=== PATIENT | female | born 1930 | race Caucasian/White ===

== ENCOUNTER 2017-01-13 11:37 | Inpatient (IN) | payer OTHER ==
[2017-01-13 15:27] LABS: MANUAL DIFF NEEDED? NO
[2017-01-13 15:28] LABS: BASO% 0.3 % (0.0-0.8); EOS# 0.05 X1000 (0.0-0.7); EOS% 0.7 % (0.0-10.0); HEMATOCRIT 37.3 % (37.0-47.0); HEMOGLOBIN 12.3 g/dL (12.0-16.0); IMM GRAN# 0.02 X1000 (0.0-0.04); IMM GRAN% 0.3 % (0.0-0.5); LYMPH# 3.13 X1000 (1.2-3.4); LYMPH% 41.6 % (20.5-51.1); MCH 28.5 PG (27-31); MCV 86.3 FL (81-99); MONO# 0.69 X1000 (0.11-0.59); MONO% 9.2 % (1.7-9.3); MPV 10.2 FL (7.4-10.4); NEUT% 47.9 % (42.2-75.2); PLT 278 X1000 (130-400); RBC 4.32 XMIL (4.2-5.4)
--- NOTE | 2017-01-13 15:44 | ED EKG INTERP ---
EKG Interpretation - EKG Time of EKG reading by physician:: 15:00 EKG Read and Signed by:: Semaj Nowak EKG Interpretation (*Must complete 3 of following elements*): Abnormal (Left Bundal branch block) Rate: 75 Rhythm: Normal sinus rhythm Comments: Abnormal ECG
[2017-01-13 15:54] LABS: ALBUMIN 4.1 g/dL (3.5-5.0); CALCIUM 9.3 mg/dL (8.8-10.2); TOTAL BILIRUBIN 0.4 mg/dL (0.20-1.00); TOTAL PROTEIN 6.7 g/dL (6.3-8.3)
--- NOTE | 2017-01-13 15:58 | EKG Report ---
Test Performed on : 01/13/2017 3:00:41 PM Test Reason : AMS Blood Pressure : / mmHG Vent. Rate : 075 BPM Atrial Rate : 075 BPM P-R Int : 166 ms QRS Dur : 152 ms QT Int : 466 ms P-R-T Axes : 008 -17 135 degrees QTc Int : 520 ms Normal sinus rhythm. Left bundle branch block Abnormal ECG When compared with ECG of 24-OCT-2016 16:00, Left bundle branch block is now present Unconfirmed Result
[2017-01-13 16:00] LABS: INR 1.07 (0.86-1.15); PROTIME 14.2 Seconds (12.1-15.5); PTT PL 24.9 Seconds (22.6-43.9)
--- NOTE | 2017-01-13 16:22 | Diag Imaging Result Document ---
PROCEDURE NAME: HEAD/C-SPINE W/O CONTRAST - 01/13/[address]: A CT dose reduction protocol was used. COMPARISON: 10/24/2016. FINDINGS: There is a new ill-defined hypodense area of the left parietal lobe. No intracranial mass or hemorrhage. Stable diffuse atrophy. The skull is intact. The sinuses are clear. 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 At least 1 -day- old. CT CERVICAL SPINE: A CT dose reduction protocol was used. COMPARISON: None. FINDINGS: Alignment is anatomic. No fracture or subluxation. There is mild multilevel disk degeneration notably at C5-6 and C6-C7. There is significant bilateral facet degeneration left greater than right. IMPRESSION: Cervical spondylosis. No acute disease. [facility]
--- NOTE | 2017-01-13 16:34 | PROVIDER DOCUMENTATION ---
HPI-General Adult - General Chief Complaint: Altered Mental Status Stated Complaint: AMS/FALL/URINARY RETENTION Time Seen by Provider: 01/13/17 15:15 Source: patient Allergies/Adverse Reactions: Patient Allergies Allergy/AdvReac Type Severity Reaction Status Date / Time levofloxacin [From Levaquin] Allergy ANAPHYLAXIS Verified 07/14/16 15:50 Home Medications: Home Medication List Medication Instructions Recorded Confirmed Last Taken Type Potassium Chloride E.r. [Klor-Con] 10 meq PO TID 06/18/14 01/09/16 Unknown History Ergocalciferol (Vitamin D2) 50,000 unit PO Q7D #5 capsule 05/21/15 01/09/16 Unknown Rx [Vitamin D] Fenofibrate [Tricor] 145 mg PO QHS #0 tablet 05/21/15 01/09/16 Unknown Rx Omeprazole [Prilosec] 40 mg PO DAILY@0700 #30 capsule 05/21/15 01/09/16 Unknown Rx Trazodone [Desyrel] 25 mg PO QHS PRN #30 tablet 05/21/15 01/09/16 Unknown Rx Diltiazem [Cardizem] 30 mg PO DAILY 08/10/15 01/09/16 Unknown History Lisinopril 20 mg PO DAILY 08/10/15 01/09/16 Unknown History Metoprolol Succinate E.r. [Toprol 100 mg PO DAILY 08/10/15 01/09/16 Unknown History Xl] Losartan Potassium [Cozaar] 100 mg PO BID 01/09/16 01/09/16 Unknown History Hydrocodone/APAP 5 mg/325 mg 1 each PO Q6H PRN PRN #15 tablet 07/14/16 Unknown Rx [[place]-5] - History of Present Illness -Gen Adult Nature of Presenting Problems: 86 yo female presents to ER with family. Patient c/o not having a BM in 5 days. Daughters states that she has been more emotional and confused in the past several days. She had open heart surgery at in October and was in hospital for 3 weeks then went to rehab facility for 21 days but has not been participating in rehab and has been refusing medication so family brought her home two weeks ago. The first week she did really well but the past several days she has been worse with emotions and confusion. They also state that when she gets upset that she starts to hyperventilate. Location of Pain/Injury: reports: abdomen Pain Radiation: reports: no radiation Quality of Pain: reports: pressure Severity: reports: mild Onset/Duration: reports: 5 days ago Timing: reports: still present Context/Activities at Onset: reports: none Modifying Factors: improves with: nothing Associated Symptoms: reports: constipation Similar Symptoms Previously?: No Recently seen or treated by another doctor?: No Review of Systems - Adult - REVIEW OF SYSTEMS - ADULT Constitutional: reports: no symptoms reported Eyes: reports: no symptoms reported Ears, Nose, Mouth & Throat: reports: no symptoms reported Cardiovascular: reports: no symptoms reported Respiratory: reports: no symptoms reported Gastrointestinal: reports: see HPI, constipation Genitourinary: reports: no symptoms reported Musculoskeletal: reports: no symptoms reported Integumentary: reports: no symptoms reported Neurological: reports: no symptoms reported Psychiatric: reports: see HPI, panic attacks Endocrine: reports: no symptoms reported Hematologic/Lymphatic: reports: no symptoms reported Allergic/Immunologic: reports: no symptoms reported All Other Systems: Reviewed and Negative Past History - Adult - PAST MEDICAL HISTORY-ADULT Review of Records: reports: Old Records Reviewed, Nursing Assessment Review, Medications Reviewed, Social history reviewed & non-contributory. Major Childhood Illnesses: reports: denies history Cardiovascular: reports: cardiac disease, CAD, HTN, hyperlipidemia, other (Had cardic cath 8 weeks ago and it was negative) Respiratory: reports: bronchitis (chronic), COPD Gastrointestinal: reports: denies history Neurological: reports: headaches/migraines, other (Trigeminal Neurlgia) Endocrine/Immune: reports: thyroid disorder - PRIOR SURGERIES/PROCEDURES Surgical/Procedure History: reports: CABG (October 2016), hysterectomy, other ( tumor removal) - IMMUNIZATION STATUS Childhood Immunizations: See Nurse Assessment Flu Vaccine: See Nurse Assessment - FAMILY HISTORY Family History: reviewed, not pertinent - SOCIAL HISTORY Smoking: denies, non-smoker Substance Use: denies Alcohol Use Frequency: never Living Situation: family Physical Exam-General - PHYSICAL EXAM-ADULT Initial Vital Signs Reviewed: Yes - CONSTITUTIONAL General Appearance: appears well, mild distress (anxious), other (confused at times) - EYES Eyes: PERRL/EOMI - HEAD, EARS, NOSE, MOUTH & THROAT HENMT: normocephalic/atraumatic, moist mucous membranes, normal ENT inspection - NECK Neck: non-tender, full range of motion, supple - RESPIRATORY Respiratory: lungs clear, normal breath sounds, no respiratory distress, other ( hyperventalates at times) - CARDIOVASCULAR Cardiovascular: normal peripheral pulses, regular rate, rhythm - GASTROINTESTINAL (ABDOMEN) Abdominal Exam: soft, abnormal bowel sounds (hypoactive) - MUSCULOSKELETAL Back Exam: normal inspection Extremity: normal inspection, no pedal edema Peripheral Pulses: radial (R): 2+, radial (L): 2+, dorsalis-pedis (R): 2+, dorsalis-pedis (L): 2+ - SKIN Integumentary: normal color, normal turgor, warm/dry - NEUROLOGIC Neurologic: grossly normal - PSYCHIATRIC Psych/Mental Status: disoriented x 3 (knows place and person but not time), anxious, depressed affect, tearful Progress - PLAN OF CARE/RESULTS Progress/Plan/Lab Results: 1615-Discussed CT results with Dr. Nowak; he instructs to admit to hospitalist. 163-Discussed results/dx/need for admission with patient and family; they verbalized understanding. 165-Dr. Venegas is in ER seeing patient. Laboratory Tests 01/13/17 01/13/17 01/13/17 15:15 15:15 15:15 WBC RBC Hgb Hct MCV MCH MCHC RDW Std Deviation Plt Count MPV Immature Gran % (Auto) Neut % (Auto) Lymph % (Auto) [place] % (Auto) Eos % (Auto) Baso % (Auto) Immature Gran # (Auto) Neut # (Auto) Lymph # (Auto) [place] # (Auto) Eos # (Auto) Baso # (Auto) PT INR APTT (Factor Assay) Sodium 134 L Potassium 4.0 Chloride 98 Carbon Dioxide 21 L Anion Gap 16 BUN 21 Creatinine 1.4 H Estimated GFR/1.73 m2 36 BUN/Creatinine Ratio 15 Glucose 124 H Calculated Osmolality 273 Calcium 9.3 Total Bilirubin 0.40 AST 66 H ALT 39 H Alkaline Phosphatase 42 Creatine Kinase 86 Troponin T 0.010 Total Protein 6.7 Albumin 4.1 Globulin 3.0 Albumin/Globulin Ratio 2.0 Plasma Lactate 2.3 H Plasma/Serum Ethyl Alc 01/13/17 01/13/17 01/13/17 15:15 15:15 15:15 WBC 7.52 RBC 4.32 Hgb 12.3 Hct 37.3 MCV 86.3 MCH 28.5 MCHC 33.0 RDW Std Deviation 16.7 H Plt Count 278 MPV 10.2 Immature Gran % (Auto) 0.3 Neut % (Auto) 47.9 Lymph % (Auto) 41.6 [place] % (Auto) 9.2 Eos % (Auto) 0.7 Baso % (Auto) 0.3 Immature Gran # (Auto) 0.02 Neut # (Auto) 3.61 Lymph # (Auto) 3.13 [place] # (Auto) 0.69 H Eos # (Auto) 0.05 Baso # (Auto) 0.02 PT 14.2 INR 1.07 APTT (Factor Assay) 24.9 Sodium Potassium Chloride Carbon Dioxide Anion Gap BUN Creatinine Estimated GFR/1.73 m2 BUN/Creatinine Ratio Glucose Calculated Osmolality Calcium Total Bilirubin AST ALT Alkaline Phosphatase Creatine Kinase Troponin T Total Protein Albumin Globulin Albumin/Globulin Ratio Plasma Lactate Plasma/Serum Ethyl Alc Orders Category Date Time Status Cardiac Monitoring DIRECTED Care 01/13/17 14:52 Active Finger Stick Blood Sugar (ED) DIRECTED Care 01/13/17 14:52 Active Saline Loc NOW Care 01/13/17 14:52 Active CHEST-2 VIEWS [RAD] Stat Exams 01/13/17 14:54 Taken HEAD/C-SPINE W/O CONTRAST [CT] Stat Exams 01/13/17 15:33 Draft flat [ABDOMEN FLAT/UPRIGHT] [RAD] Stat Exams 01/13/17 15:11 Taken ALCOHOL BLOOD Stat Lab 01/13/17 15:15 Completed CBC WITH ELECTRONIC DIFF [HEME] Stat Lab 01/13/17 15:15 Completed CK PROFILE [SP CHEM] Stat Lab 01/13/17 15:15 Completed COMPREHENSIVE METABOLIC PANEL [CHEM] Stat Lab 01/13/17 15:15 Completed LACTATE, PLASMA [CHEM] Stat Lab 01/13/17 15:[address]IME WITH INR [address] [COAG] Stat Lab 01/13/17 15:[address] [COAG] Stat Lab 01/13/17 15:15 Completed TROPONIN T Stat Lab 01/13/17 15:[address] W/POSS RFLX CULT [URINALYSIS] Stat Lab 01/13/17 15:06 Or[address] DRUG SCREEN [address] Stat Lab 01/13/17 15:06 Ordered Pulse Oximetry Stat Oth 01/13/17 14:52 Active EKG [EKG] Stat Ther 01/13/17 14:52 Draft Vital Signs - 24 hr 01/13/17 11:45 Temperature 97.5 F L Pulse Rate 76 Respiratory 20 Rate Blood Pressure 139/075 O2 Sat by Pulse 100 Oximetry - XRAY 1 XRAY Study: Chest Impression: Normal (NAD) XRAY Interpretation: Interpreted by Dr. Morton 2 XRAY Study: Abdomen Impression: Abnormal (severe rectal stool impaction borderline gas distention small bowel loop uncertain significance) XRAY Interpretation: Interpreted by Dr. Morton - CT/MRI 1 CT Study: Cervical Spine, Head Impression: Abnormal (recent stroke left parietal lobe 1-2 days old c-spine: DDD; NAD) CT Results: Interpreted by Dr. Morton - CONSULTS/PCP/HOSPITALIST Notification #1 *Consult/PCP/Hospitalist*: Dr. Venegas Time Discussed: 16:20 (hospitalist) Consult Disposition: Admit Departure - Departure Time of Disposition Order: 16:41 DIAGNOSIS: Fecal impaction in rectum, Stroke, acute, within 8 weeks, Confused but orients easily Disposition: ADMITTED INPATIENT 09 Certified Medical Emergency: Emergent Condition: Fair Referrals: Margarito Powell MD [Primary Care Provider] - Attestation - Physician/ JOSEE Attestation Patient care was provided by Advanced Practice Provider:: Yes Advanced Practice Provider:: Katelyn Browning Advanced Practice Provider documentation review:: The Mid-level provider documentation, treatment plan and medical decision making was reviewed by the physician who agrees with all treatment and medical decision making by the [facility].
--- NOTE | 2017-01-13 16:47 | Diag Imaging Result Document ---
PROCEDURE NAME: CHEST-2 VIEWS - 01/13/2017 CHEST, 2 VIEWS: COMPARISON: 10/24/2016. FINDINGS: There are new CABG changes. Heart size and pulmonary vascularity is normal. No focal infiltrates, pneumothorax, or pleural effusion. IMPRESSION: No acute disease.
--- NOTE | 2017-01-13 16:49 | Diag Imaging Result Document ---
PROCEDURE NAME: ABDOMEN FLAT/UPRIGHT - 01/13/2017 ABDOMEN, 2 VIEWS: COMPARISON: 07/14/2016. FINDINGS: There is a borderline gas distended loop of small bowel in the right lower quadrant measuring 3.4 cm. There is a large rectal stool ball measuring 15 x 9 cm. No free air. IMPRESSION: 1. Severe rectal stool impaction. 2. Borderline gas distended small bowel loop. Significance uncertain.
[2017-01-13] MEDS ORDERED: NS 1,000 ML IV SCH (17:49)
--- NOTE | 2017-01-13 23:21 | Diag Imaging Result Document ---
PROCEDURE NAME: FEMUR MIN 2 VIEWS RIGHT - 01/13/2017 PLAIN RADIOGRAPH OF THE RIGHT FEMUR 5 VIEWS: COMPARISON: None available. FINDINGS: There are mild degenerative changes at the right acetabular roof. There is no discrete fracture, dislocation, or intrinsic osseous lesion involving the right femur. Surrounding soft tissues are grossly unremarkable by plain radiograph. IMPRESSION: No definite acute osseous abnormality by plain radiograph.
[2017-01-14 06:09] LABS: HEMATOCRIT 32.8 % (37.0-47.0); HEMOGLOBIN 10.5 g/dL (12.0-16.0); MCH 27.9 PG (27-31); MCV 87.2 FL (81-99); MPV 10.6 FL (7.4-10.4); RBC 3.76 XMIL (4.2-5.4)
[2017-01-14 06:36] LABS: ALBUMIN 3.3 g/dL (3.5-5.0); CALCIUM 8.3 mg/dL (8.8-10.2); POTASSIUM 3.3 mmol/L (3.5-5.1); TOTAL BILIRUBIN 0.3 mg/dL (0.20-1.00); TOTAL PROTEIN 5.4 g/dL (6.3-8.3)
[2017-01-14] MEDS ORDERED: DULCOLAX PR ONE (07:40)
[2017-01-14] MEDS: COREG PO SCH ×2 (08:31→21:45)
[2017-01-14] MEDS: KLOR-CON PO SCH ×2 (08:31→21:45)
[2017-01-14] MEDS: ASPIRIN EC PO SCH (08:31)
[2017-01-14] MEDS: MULTI-VITAMIN PO SCH (08:32)
[2017-01-14] MEDS: LASIX PO SCH (08:32)
[2017-01-14] MEDS: COLACE PO SCH (08:32)
--- NOTE | 2017-01-14 11:33 | PROGRESS NOTE ---
DATE: 01/14/2017 SUBJECTIVE: Patient is resting quietly in bed. Daughter at bedside states that she had a large bowel movement this a.m. OBJECTIVE: Vital Signs: Temperature 97.9 degrees, pulse 63, respirations 18, blood pressure 152/67, saturating 100% on room air. General: This is an 86-year-old female who is lying in the bed. Answers most questions appropriately. HEENT: Normocephalic and atraumatic. Pupils are equal, round, and reactive to light. Extraocular movements are intact. The oropharynx and nares are clear. Neck: Supple. Lungs: Clear to auscultation bilaterally, with equal lung expansion and chest wall movement. Heart: Regular rate and rhythm. No murmurs, rubs, or gallops. Abdomen: Soft, nontender, and mildly distended, with some hypoactive bowel sounds this a.m., but did have a positive bowel movement this morning. Extremities: There is no clubbing, cyanosis, or edema. Neurological: The cranial nerves 2-12 appear grossly intact. LABORATORY DATA: This morning, white blood cell count of 5.38, hemoglobin 10.5, hematocrit 32.8, platelets of 227,000. Sodium is 138, potassium is 3.3, chloride 105, CO2 is 22, BUN 16, creatinine 1.1, glucose 91. AST is 45, ALT 29. Her triglycerides were 177, cholesterol 156. ASSESSMENT: 1. Acute cerebrovascular accident. 2. Fecal impaction. 3. Acute kidney injury. 4. History of hypertension. 5. Hypokalemia. PLAN: We will again obtain her echo and carotid this a.m., continue her telemetry, neurologic checks q.4 for 24 hours. Physical therapy to evaluate and speech. We restarted her home medications, which included her potassium. She is on 10 mEq p.o. b.i.d. Will give that today. Reassess her CBC and CMP in the a.m. She has had a positive bowel movement. Will obtain another abdomen x-ray to ensure that the fecal impaction has resolved. Dictated by GAMA Valdes for Rylan Venegas MD
--- NOTE | 2017-01-14 12:22 | Diag Imaging Result Document ---
PROCEDURE NAME: ABDOMEN FLAT/UPRIGHT - 01/14/2017 FLAT AND UPRIGHT RADIOGRAPH OF THE ABDOMEN: COMPARISON: 01/13/2017. FINDINGS: Nonspecific bowel gas is again identified. It appears to be predominantly colonic. The borderline distended small bowel loops seen on the previous study is not clearly identified indicating that there is less distention. There is no evidence of large-volume free abdominal gas. The abdomen is stable otherwise. IMPRESSION: Nonspecific bowel gas patterns with interval improvement of the mild small bowel distention seen previously.
--- NOTE | 2017-01-14 13:38 | HISTORY AND PHYSICAL ---
PRIMARY CARE PHYSICIAN: Margarito Powell MD CHIEF COMPLAINT: Increased confusion over the past several days. The patient had a fall on the morning of arrival, so was brought to the emergency room for evaluation. HISTORY OF PRESENTING ILLNESS: This is an 86-year-old female who apparently had a CABG in October of this year at [facility]. She did well with her procedure there and went to rehab where she also did well. Approximately 2 weeks ago she was brought home with family. Did well the 1st week. This past week though they have noted that she has had increased confusion, has been tearful and was refusing some of her medications. Her daughter states that she has not had a bowel movement in 5 days and that she had a fall yesterday morning on 01/13/2017 with complaints of pain to her right leg. Workup in the ER showed a head CT with a relatively recent infarction of the left parietal lobe at least [address] of the C-spine showed no acute disease. X-ray of her right femur showed no definite acute osseous abnormality by plain radiography. An abdomen x-ray showed severe rectal stool impaction, borderline gas distended small bowel loops significance uncertain. So, she is being admitted to the medical unit at [facility] for further evaluation and treatment. PAST MEDICAL HISTORY: Subaortic hypertrophic cardiomyopathy, hypertension, carotid stenosis, hypothyroidism and trigeminal neuralgia. PAST SURGICAL HISTORY: Hysterectomy, thyroid tumor removal and a CABG 10/2016 at [facility]. FAMILY HISTORY: Noncontributory. SOCIAL HISTORY: She currently lives with her family. Denies any tobacco, alcohol, or illicit drug use. ALLERGIES: Levaquin. HOME MEDICATIONS: 1. Aspirin 325 mg p.o. daily. 2. Coreg 25 mg p.o. b.i.d. 3. Colace 100 mg p.o. daily. 4. TriCor 145 mg p.o. at bedtime. 5. Lasix 40 mg p.o. daily. Lisinopril 2.5 mg p.o. at bedtime. 6. Centrum Silver 1 tablet p.o. daily. 7. Potassium 10 mEq p.o. b.i.d. 8. Pravachol 80 mg p.o. at bedtime. LABORATORY DATA: White blood cell count of 7.52, hemoglobin of 12.3, hematocrit 37.3, platelets 278,000. PT and INR of 14.2 and 1.07. Sodium of 134, potassium 4, chloride 98, CO2 21, BUN of 21, creatinine 1.48. Glucose 124, AST of 66, ALT 39, creatine kinase was 86 with a troponin of 0.010. Plasma lactate was 2.3, serum alcohol level showed none detected. Chest x-ray showed no acute disease. Abdominal x-ray showed severe rectal stool impaction, borderline gas distended small bowel loops significance uncertain. CT of the head showed a relatively recent infarction of the left parietal lobe at least [address] of the cervical spine showed cervical spondylosis, no acute disease. Right femur x-ray shows no definite acute osseous abnormality by plain radiograph. EKG with normal sinus rhythm. REVIEW OF SYSTEMS: She denies any fever, chills, blurred vision, dizziness, chest pain, coughing, shortness of breath. She is positive for constipation. Denied any diarrhea, burning or hurting with urination or abdominal pain and complains of pain to her right leg. PHYSICAL EXAMINATION: VITAL SIGNS: On arrival, she had a temperature of 97.5 degrees pulse 76, respirations 20, blood pressure 139/75, saturating 100% on room air. GENERAL: This is an 86-year-old female who is lying in the bed. Answers most questions appropriately. Daughter is also at bedside and reviewing medical records to obtain history. HEENT: Normocephalic and atraumatic. Pupils are equal, round, reactive to light. Extraocular movements are intact. Oropharynx and nares are clear. NECK: Supple. LUNGS: Clear to auscultation bilaterally with equal lung expansion and chest wall movement. HEART: Regular rate and rhythm. No murmurs, rubs, or gallops. ABDOMEN: Soft, nontender, nondistended. Bowel sounds are present x4 quadrants. EXTREMITIES: There is no clubbing, cyanosis, or edema. NEUROLOGICAL: The cranial nerves 2-12 appear grossly intact. ASSESSMENT: 1. Acute cerebrovascular accident. 2. Fecal impaction. 3. Hypertension. 4. Mild acute kidney injury. PLAN: She is admitted to the medical unit at [facility]. She was placed on neuro checks q.4h. for 24 hours. Telemetry, healthy heart diet. We will obtain an echocardiogram and bilateral carotid ultrasound, even though she is known to have some carotid stenosis. We will get physical therapy evaluation and speech evaluation. We will check a urinalysis. We will give her a Dulcolax 10 mg per rectum for her fecal impaction. Continue home medications and we will check a lipid panel also. Dictated by GAMA Valdes for Rylan Venegas MD
[2017-01-14] MEDS: LOVENOX SUBQ SCH (16:01)
[2017-01-14 17:37] LABS: URINE SOURCE CATH
[2017-01-14 17:46] LABS: UR AMPHETAMINES QUAL NONE DETECTED (NONE DETECT); UR BARBITUATES QUAL NONE DETECTED (NONE DETECT); UR BENZODIAZEPIN QUAL NONE DETECTED (NONE DETECT); UR COCAINE QUAL NONE DETECTED (NONE DETECT); UR MDMA QUAL NONE DETECTED (NONE DETECT); UR METHADONE QUAL NONE DETECTED (NONE DETECT); UR METHAMPHETAMINE QUAL NONE DETECTED (NONE DETECT); UR OPIATES QUAL NONE DETECTED (NONE DETECT); UR OXYCODONE QUAL NONE DETECTED (NONE DETECT); UR PCP QUAL NONE DETECTED (NONE DETECT); UR TCA QUAL NONE DETECTED (NONE DETECT)
[2017-01-14 17:47] LABS: UR CANNABINOIDS QUAL NONE DETECTED (NONE DETECT)
[2017-01-14 17:48] LABS: BILIRUBIN URINE NEGATIVE (NEGATIVE); BLOOD URINE NEGATIVE (NEGATIVE); CLARITY VERY CLOUDY (CLEAR); COLOR YELLOW; GLUCOSE URINE NEGATIVE (NEGATIVE); LEUKOCYTES URINE 2+ (NEGATIVE); NITRITE URINE POSITIVE (NEGATIVE); PH URINE 6.5; PROTEIN URINE NEGATIVE (NEGATIVE); UROBILINOGEN URINE NORMAL
[2017-01-14 18:04] LABS: URINE CAST NONE SEEN /LPF; URINE CRYSTAL NONE SEEN /HPF; URINE CULTURE PL NEEDED? YES; URINE EPITHELIAL CELLS <10 /HPF (<10); URINE WBC 20-40 /HPF (<10)
[2017-01-14] MEDS: PRAVACHOL PO SCH (21:44)
[2017-01-14] MEDS: TRICOR PO SCH (21:45)
[2017-01-14] MEDS: PRINIVIL PO SCH (21:46)
[2017-01-15 06:13] LABS: MANUAL DIFF NEEDED? NO
[2017-01-15 06:25] LABS: BASO% 0.2 % (0.0-0.8); EOS# 0.09 X1000 (0.0-0.7); EOS% 1.9 % (0.0-10.0); HEMATOCRIT 33.1 % (37.0-47.0); HEMOGLOBIN 10.6 g/dL (12.0-16.0); IMM GRAN# 0.01 X1000 (0.0-0.04); IMM GRAN% 0.2 % (0.0-0.5); LYMPH# 2.53 X1000 (1.2-3.4); LYMPH% 53.3 % (20.5-51.1); MCH 27.8 PG (27-31); MCV 86.9 FL (81-99); MONO# 0.48 X1000 (0.11-0.59); MONO% 10.1 % (1.7-9.3); MPV 10.7 FL (7.4-10.4); NEUT% 34.3 % (42.2-75.2); PLT 228 X1000 (130-400); RBC 3.81 XMIL (4.2-5.4)
[2017-01-15 06:43] LABS: CALCIUM 8.4 mg/dL (8.8-10.2); POTASSIUM 3.4 mmol/L (3.5-5.1)
[2017-01-15] MEDS: COLACE PO SCH (09:08)
[2017-01-15] MEDS: KLOR-CON PO SCH ×2 (09:08→22:20)
[2017-01-15] MEDS: ASPIRIN EC PO SCH (09:08)
[2017-01-15] MEDS: MULTI-VITAMIN PO SCH (09:08)
[2017-01-15] MEDS: COREG PO SCH ×2 (09:08→22:20)
[2017-01-15] MEDS: LASIX PO SCH (09:08)
[2017-01-15] MEDS ORDERED: KLOR-CON PO ONE (10:07)
[2017-01-15] MEDS ORDERED: ZOFRAN IV PRN (10:37)
--- NOTE | 2017-01-15 10:40 | PROGRESS NOTE ---
DATE: 01/15/2017 SUBJECTIVE: The patient notes that she is feeling much better today. She denies any nausea or vomiting. Still states that she has not had very many bowel movements, but notes that her abdomen is much less hard and much less tender. Denies any headaches or blurred vision. Denies any focalized weakness or numbness. PHYSICAL EXAMINATION: Vital Signs: Temperature 97 degrees, pulse 63, respiratory 18, blood pressure 142/59, saturation 98% on room air. General: Patient is well developed and well nourished. She is currently in no respiratory distress. She is awake, alert, and much more oriented today than she was yesterday. HEENT: Normocephalic. Neck: Supple. Cardiovascular: Regular rate. Chest: Relatively clear. Abdomen: Soft. Extremities: Moves all extremities. She is noted to have generalized weakness, but no focal weakness. Neurologic: She is awake, alert, oriented, pleasant to talk with. LABORATORIES: CBC normal with hemoglobin and hematocrit of 10 and 33. Potassium 3.4, creatinine 1.0, calcium 8.4. LDL at 156. ASSESSMENT: 1. Acute cerebrovascular accident. Continues to improve. 2. Fecal impaction. She had several bowel movements yesterday. We will recheck a KUB today. Will continue Colace. 3. Hypertension, stable. 4. Mild acute kidney injury, stable. PLAN: 1. Will continue patient on her home medications. 2. Acute hepatitis, resolved. LFTs are improving. 3. Hypokalemia. Will replace. 4. Hyponatremia, stable. 5. We will continue physical therapy, speech evaluation, and follow. Hopefully, home in a day or 2. Will get the staff to assist in ambulation.
--- NOTE | 2017-01-15 15:55 | Diag Imaging Result Document ---
PROCEDURE NAME: KUB ABDOMEN - 01/15/2017 SINGLE SUPINE RADIOGRAPH OF THE ABDOMEN AND PELVIS: COMPARISON: 01/14/2017. FINDINGS: There are nonspecific bowel gas and stool patterns. There is a fair amount of stool in the rectum suggesting possible mild rectal fecal impaction. There is no definite obstructive pattern. IMPRESSION: Possible small rectal fecal impaction and nonspecific abdomen, otherwise.
[2017-01-15] MEDS: LOVENOX SUBQ SCH (16:07)
--- NOTE | 2017-01-15 16:23 | ECHO REPORT ---
ORDER DATE: 01/14/2017 ECHOCARDIOGRAPHIC MEASUREMENTS: 1. Interventricular septum 1.4. Left ventricular posterior wall 1.3. Diastolic diameter 3.9. Left atrium 3.9. Aorta 3.1. 2. Aortic valve leaflets are trileaflet. Pulmonic valve was normal. There is trace pulmonary regurgitation. 3. Mitral valve was normal. Tricuspid valve was normal. 4. Normal left ventricular cavity size. Concentric left ventricular hypertrophy. Estimated ejection fraction of 55%. There is mild mitral regurgitation. 5. Mild tricuspid regurgitation. Peak velocity across the tricuspid valve was 2.8 m/sec. Pulmonary artery systolic pressure of 42 mmHg. 6. Peak velocity across the aortic valve less than 2 m/sec. There is no aortic stenosis or regurgitation. There is diastolic dysfunction. 7. There is no pericardial effusion or obvious intracardiac mass or thrombus seen. 8. Technically suboptimal study. Poor acoustic window.
[2017-01-15] MEDS: PRAVACHOL PO SCH (22:20)
[2017-01-15] MEDS: TRICOR PO SCH (22:20)
[2017-01-15] MEDS: PRINIVIL PO SCH (22:21)
--- NOTE | 2017-01-16 08:13 | PROGRESS NOTE ---
DATE: 01/16/2017 SUBJECTIVE: The patient notes she is feeling much better. She was able to get up into the chair for couple hours yesterday. Still kind of tired and fatigued, but denies any urinary issues. Denies fevers or chills. Still having some issues with constipation. PHYSICAL EXAMINATION: Vital Signs: Temperature 98, pulse 70, respiratory rate 18, blood pressure 140/60, saturation 99% on room air. General: Patient is awake, alert, oriented. Well- developed, well-nourished, elderly female, who is currently in no respiratory distress. Neck: Supple. Cardiovascular: Regular rate. Chest: Relatively clear. Abdomen: Soft. Positive bowel sounds. Nontender. Neurologic: No focal changes presently. She is awake and alert. She is still having some generalized fatigued, but no focal weakness from her recent stroke. ASSESSMENT: 1. Urinary tract infection. She has a urine from 01/14 that is still requiring further incubation. We will continue her on antibiotics for now. 2. Constipation. Recent KUB showed questionable fecal impaction. We will try lactulose to see if this will help. 3. Acute cerebrovascular accident. Will continue physical therapy. Patient hopefully can be discharged home soon after her urine infection is treated. 4. Hypertension. 5. Acute kidney injury, resolved. PLAN: We will continue patient on Rocephin for her current urinary infection. We will continue to follow her blood pressures, which have been very good in the 140 and 150 range. We will keep him here for the next few days given her recent stroke. We will continue to follow. Further orders as needed.
[2017-01-16] MEDS: ROCEPHIN 1 GM/NS 50 ML IV SCH (08:21)
[2017-01-16] MEDS: LACTULOSE PO SCH ×2 (08:21→22:05)
[2017-01-16] MEDS: MULTI-VITAMIN PO SCH (08:21)
[2017-01-16] MEDS: KLOR-CON PO SCH ×2 (08:21→22:04)
[2017-01-16] MEDS: COLACE PO SCH (08:22)
[2017-01-16] MEDS: LASIX PO SCH (08:22)
[2017-01-16] MEDS: COREG PO SCH ×2 (08:22→22:04)
[2017-01-16] MEDS: ASPIRIN EC PO SCH (08:29)
[2017-01-16] MEDS: LOVENOX SUBQ SCH (14:33)
--- NOTE | 2017-01-16 15:08 | Extremity Venous Study ---
PROCEDURE NAME: Carotid Ultrasound - 01/14/2017 CAROTID DOPPLER: COMPARISON: None available. FINDINGS: Right: There is atherosclerotic plaque throughout the right carotid system that is moderate in severity. It appears to be most significant at the right carotid bulb and proximal ICA on grayscale imaging. The peak systolic velocity measures 259, 103, 239, 124, 62, 66, and 202 cm/sec at the right subclavian artery, CCA, bifurcation, proximal ICA, mid ICA, distal ICA, and ECA, respectively. There is antegrade flow in the vertebral artery. The carotid ratio is 1.20. Left: There is moderate atherosclerotic plaque throughout the left carotid system that appears to be milder than the right. It is probably most significant at the proximal ICA. The peak systolic velocity measures 236, 130, 132, 99, 99, 70, and 157 cm/sec at the left subclavian artery, CCA, bifurcation, proximal ICA, mid ICA, distal ICA, and ECA, respectively. There is antegrade flow in the vertebral artery. The carotid ratio is 1.02. IMPRESSION: Bilateral atherosclerotic disease as described that is worst on the right with an estimated stenosis of up to 60-79% on the right and up to 40-59% on the left based on flow velocities.
[2017-01-16] MEDS: TRICOR PO SCH (22:04)
[2017-01-16] MEDS: PRAVACHOL PO SCH (22:04)
[2017-01-16] MEDS: PRINIVIL PO SCH (22:04)
[2017-01-17 08:06] VITALS: BP 175/85
[2017-01-17] MEDS: LASIX PO SCH (08:11)
[2017-01-17] MEDS: LACTULOSE PO SCH ×2 (08:11→08:18)
[2017-01-17] MEDS: MULTI-VITAMIN PO SCH (08:11)
[2017-01-17] MEDS: ROCEPHIN 1 GM/NS 50 ML IV SCH (08:11)
[2017-01-17] MEDS: ASPIRIN EC PO SCH (08:12)
[2017-01-17] MEDS: KLOR-CON PO SCH (08:12)
[2017-01-17] MEDS: COLACE PO SCH (08:12)
[2017-01-17] MEDS: COREG PO SCH (08:12)
[2017-01-17] MEDS ORDERED: SEPTRA DS PO SCH (09:00)
== END 2017-01-17 13:15 | disposition home health service (06) | DRG 65 ==
LOC: P.ED 11:37 → P.MEDSURG 11:38 → UNDOADMOB 17:36 → OBSVTOIN 17:36 → INTOOBSV 17:36 → UNDODISIN 01-17 13:15
PROVIDERS: ATTEND Family Medicine
DX: I63.9 Cerebral infarction, unspecified (principal); N17.9 Acute kidney failure, unspecified; I42.2 Other hypertrophic cardiomyopathy; E87.1 Hypo-osmolality and hyponatremia; N39.0 Urinary tract infection, site not specified; Z95.1 Presence of aortocoronary bypass graft; I65.23 Occlusion and stenosis of bilateral carotid arteries; I10 Essential (primary) hypertension; K56.41 Fecal impaction; G50.0 Trigeminal neuralgia; E87.6 Hypokalemia; Z79.899 Other long term (current) drug therapy; Z79.82 Long term (current) use of aspirin; E78.5 Hyperlipidemia, unspecified
CPT/HCPCS: 70450; 71020; 72125; 74000; 74020; 80048; 80053; 80061; 80305; 81001; 82550; 82948; 83605; 83721; 84484; 85025; 85027; 85610; 85730; 87077; 87088; 87186; 92523; 93005; 93306; 93880; 94761; G0480; J0696; J1650; J2405; J7030; 80320; 92610-GN; 97116-GP